=== PATIENT | male | born 1980 | race Caucasian/White ===

== ENCOUNTER 2020-01-10 14:55 | Inpatient (IN) | payer MEDICAID ==
[~2020-01-10] VITALS: Ht 175.3 cm; Wt 73.0 kg
--- NOTE | 2020-01-10 15:05 | NUR ---
Patient ambulated with stable gait. Speech is clear, speaks in complete sentences. No acute neuro deficits noted at this time. Patient came for c/o SOB, denies any contact with (+) COVID. Has been hospitalized <1mth. Denies any cp, palpitations, or n/v/d, states that he is unable to urinate.
[2020-01-10] MEDS ORDERED: CARV25TA2 PO (15:12)
[2020-01-10] MEDS ORDERED: LOSA100T31 PO (15:12)
[2020-01-10] MEDS ORDERED: CLONIDINE HCL 0.1 MG TABLET PO ONE (15:30)
[2020-01-10] MEDS ORDERED: ASPIRIN 81 MG TAB.CHEW PO ONE (15:30)
[2020-01-10 15:36] LABS: BASOPHILS # (AUTO) 0.1 K/uL (0.0-8.0); BASOPHILS % (AUTO) 0.9 % (0.0-2.0); EOSINOPHILS # (AUTO) 0.2 K/uL (0.0-0.7); EOSINOPHILS % (AUTO) 3.9 % (0.0-7.0); HEMATOCRIT 26.5 % (36.7-47.1); HEMOGLOBIN 8.9 g/dL (12.5-16.3); LYMPHOCYTES # (AUTO) 0.9 K/uL (20.0-40.0); LYMPHOCYTES % (AUTO) 14.6 % (20.5-51.5); MEAN CORPUSCULAR HGB CONC 34 g/dL (32.5-36.3); MONOCYTES # (AUTO) 0.3 K/uL (2.0-10.0); MONOCYTES % (AUTO) 5.5 % (0.0-11.0); NEUTROPHILS # (AUTO) 4.5 K/uL (1.8-8.9); NEUTROPHILS % (AUTO) 75.1 % (38.5-71.5); PLATELET COUNT (AUTO) 168 K/uL (152-348); RED BLOOD CELL COUNT(AUTO) 2.88 MIL/uL (4.06-5.63)
[2020-01-10 15:51] LABS: POTASSIUM 3.1 mmol/L (3.5-5.1)
[2020-01-10 15:56] LABS: CREATININE 8.6 mg/dL (0.6-1.3)
[2020-01-10] MEDS ORDERED: ASPIRIN 81 MG TAB.CHEW ONE (16:09)
[2020-01-10] MEDS ORDERED: CLONIDINE HCL 0.1 MG TABLET ONE (16:09)
--- NOTE | 2020-01-10 17:48 | NUR ---
Report given to NATALIE Alexis
--- NOTE | 2020-01-10 18:20 | NUR ---
Patient transported to TELE in stable condition via gurney.
--- NOTE | 2020-01-10 18:30 | NUR ---
ADMITTED VIA W/C, ACCOMPANIED BY ER NURSE. ORIENTED TO SURROUNDINGS. BP GROSSLY ELEVATED. STATES NORMAL FOR HIM. MD AWARE. FISTULA LEFT FOREARM WITH [facility] [employer].
[2020-01-10 18:31] VITALS: BP 169/124
[2020-01-10] MEDS ORDERED: EPOETIN ALFA 10,000 UNITS/ML VIAL SQ ONE (19:00)
--- NOTE | 2020-01-10 19:30 | NUR ---
RECEIVED PT IN NO ACUTE DISTRESS. PT AWAKE, ALERT AND ORIENTEDX4. SAFETY AND COMFORT PROVIDED. WILL CONTINUE TO MONITOR.
[2020-01-11 00:30] VITALS: BP 160/115
--- NOTE | 2020-01-11 00:30 | NUR ---
HANDS OFF REPORT TO ORION ESTRADA. PT DIALYSIS DONE LAST NIGHT 4L OUTPUT BASED ON HEMODIALYSIS NURSE. PT TOLERATED OT WELL WITHOUT COMPLICATION. SAFETY AND COMFORT PROVIDED.WILL CONTINUE TO MONITOR.
[2020-01-11 04:00] VITALS: BP 148/101
--- NOTE | 2020-01-11 05:21 | NUR ---
NO ACUTE DISTRESS NOTED, RESTED FAIRLY WELL. NEEDS ATTENDED TO.WILL HAVE DIALYSIS IN AM.
[2020-01-11 08:00] VITALS: BP 146/106
--- NOTE | 2020-01-11 08:00 | NUR ---
Pt in bed awake AOx4, removed O2 NC and denied any SOB or distress at this time, sat 98%. Pt made aware that O2 NC is at bedside when needed, verbalized understanding. On tele SR 99- ST 104, denied any chest pain. Currently on dialysis. Bed locked in lowest position with siderails 2x up. Call light and phone within reach.
--- NOTE | 2020-01-11 09:21 | NUR ---
The patient is on Dialysis. The technologist will perform ultrasound at 10:00. NATALIE Lopez noted.
[2020-01-11] MEDS ORDERED: CARVEDILOL 25 MG TABLET PO SCH (11:00)
--- NOTE | 2020-01-11 12:24 | NUR ---
The tech discussed with Dr. Stoner. Dr. Stoner said thoracentesis cannot be done today if the patient is discharged today. The patient is needed to observed at lease 24 hour after the procedure. NATALIE Lopez was notified at 12:25 PM. NATALIE Lopez will contact DR. Kate.
[2020-01-11 12:35] VITALS: BP 160/113
[2020-01-11] MEDS ORDERED: LOSARTAN POTASSIUM 50 MG TABLET PO SCH (12:45)
--- NOTE | 2020-01-11 12:48 | NUR ---
DR. WHITE WILL PERFORM tHRACENTESIS RIGHT JENNIFER AT 2:00PM SINCE DR. MARSH WILL POSTPONE THE DISCHARGE. NATALIE CÁRDENAS NOTED.
--- NOTE | 2020-01-11 14:16 | NUR ---
Radiologist the room for US guided thoracentesis of right lung. Consent signed
--- NOTE | 2020-01-11 14:40 | NUR ---
Thoracentesis done, 1900 ml of david-colored fluid removed. v/s BP-132/98, HR 90, RR 20, T-97.8, O2- 98% on RA, pt stated he will put in NC in a few minutes. No other complaints at this time. CXR stat done
[2020-01-11 14:45] VITALS: BP 132/98
--- NOTE | 2020-01-11 14:49 | NUR ---
Dr. Plummer instructed to observe pt for 2-3 hrs, and if normal and no changes, pt can be discharged home. Dr. Kate informed.
--- NOTE | 2020-01-11 15:19 | NUR ---
1900 cc of david color pleural fluid was drained by Dr. Augustin Stoner. The specimen were handed to NATALIE Lopez for further handing.
[2020-01-11 16:00] VITALS: BP 133/97
--- NOTE | 2020-01-11 17:47 | NUR ---
Pt left unit and went down to lobby, picked up by uber. Pt was informed to call RN or RF ENGINEER when uber comes, but pt left anyway. DC instructions and forms signed and given. Medication prescription also given. Belonging list signed and all accounted for. Pt awake AOx4, on RA, denied SOB or distress at this time. Pt has been ambulating to bathroom. Denied any chest pain. IV on right FA and ID band removed.
[2020-01-12 08:32] LABS: HEPATITIS B SURFACE AB Reactive (.); HEPATITIS B SURFACE AG Negative (Negative)
[2020-02-06] MEDS ORDERED: FOLI0.8T23 PO (12:02)
[2020-02-06] MEDS ORDERED: CARV25TA PO (12:02)
[2020-02-06] MEDS ORDERED: LOSA100T31 PO (12:02)
== END 2020-01-11 17:50 | disposition home or self-care (01) | DRG 199 ==
LOC: ER 14:55 → TELE3 18:07
PROVIDERS: ADMIT Internal Medicine Nephrology; ATTEND Internal Medicine Nephrology
PROC: 5A1D70Z Performance of Urinary Filtration, Intermittent, Less than 6 Hours Per Day (ICD-10-PCS; principal; 2020-01-10)
PROC: 0W993ZZ Drainage of Right Pleural Cavity, Percutaneous Approach (ICD-10-PCS; 2020-01-11)
DX: I16.1 Hypertensive emergency (principal); I13.2 Hypertensive heart and chronic kidney disease with heart failure and with stage 5 chronic kidney disease, or end stage renal disease; N18.6 End stage renal disease; Z99.2 Dependence on renal dialysis; E87.6 Hypokalemia; D64.9 Anemia, unspecified; I50.9 Heart failure, unspecified; J96.90 Respiratory failure, unspecified, unspecified whether with hypoxia or hypercapnia; R79.89 Other specified abnormal findings of blood chemistry
CPT/HCPCS: 32555; 36415; 70030-TC; 71045; 76705; 85025; 85730; 86706; 87340; 90937; 93005; 93880; A4663; G0378; J0885

== ENCOUNTER 2020-01-18 14:59 | Emergency (ER) | payer MEDICAID ==
[~2020-01-18] VITALS: Ht 175.3 cm; Wt 75.7 kg
[~2020-01-18 14:59] MED LIST: CARV25TA2 PO; LOSA100T31 PO
[2020-01-18] MEDS ORDERED: LIDOCAINE HCL 1% 20 ML VIAL TP ONE (15:30)
[2020-01-18] MEDS ORDERED: LIDOCAINE HCL 1% 20 ML VIAL ONE (15:30)
--- NOTE | 2020-01-18 15:35 | NUR ---
PT IS IN ROOM #2A. DR NEWSOME EVALAUATED THE PT.
--- NOTE | 2020-01-18 16:18 | NUR ---
PT WAS D/C'dTO HOME. D/C INSTRUCTIONS GIVEN TO THE PT.
[2020-01-18 16:19] VITALS: BP 146/85
[2020-02-06] MEDS ORDERED: FOLI0.8T23 PO (12:02)
[2020-02-06] MEDS ORDERED: CARV25TA PO (12:02)
[2020-02-06] MEDS ORDERED: LOSA100T31 PO (12:02)
== END 2020-01-18 16:20 | disposition home or self-care (01) ==
LOC: ER 15:01
DX: L02.211 Cutaneous abscess of abdominal wall (principal); N18.6 End stage renal disease; Z99.2 Dependence on renal dialysis; Z79.899 Other long term (current) drug therapy; R03.0 Elevated blood-pressure reading, without diagnosis of hypertension
CPT/HCPCS: 10160; 76882; 99284; J3490; A4663

== ENCOUNTER 2020-02-02 09:17 | Emergency (ER) | payer MEDICAID ==
[~2020-02-02] VITALS: Ht 172.7 cm; Wt 77.1 kg
--- NOTE | 2020-02-02 09:29 | NUR ---
Dr [email or web address], medical screening exam in progress
[2020-02-02 09:49] LABS: BASOPHILS # (AUTO) 0.1 K/uL (0.0-8.0); EOSINOPHILS # (AUTO) 0.1 K/uL (0.0-0.7); EOSINOPHILS % (AUTO) 1.5 % (0.0-7.0); LYMPHOCYTES # (AUTO) 0.6 K/uL (20.0-40.0); LYMPHOCYTES % (AUTO) 14.1 % (20.5-51.5); MEAN CORPUSCULAR HEMOGLOBIN 34.5 uug (23.8-33.4); MEAN CORPUSCULAR HGB CONC 36 g/dL (32.5-36.3); MEAN CORPUSCULAR VOLUME 96.1 fL (73.0-96.2); MONOCYTES # (AUTO) 0.2 K/uL (2.0-10.0); MONOCYTES % (AUTO) 5.2 % (0.0-11.0); NEUTROPHILS # (AUTO) 3.4 K/uL (1.8-8.9); NEUTROPHILS % (AUTO) 77.2 % (38.5-71.5); PLATELET COUNT (AUTO) 127 K/uL (152-348); RED BLOOD CELL COUNT(AUTO) 2.61 MIL/uL (4.06-5.63); WHITE BLOOD COUNT (AUTO) 4.3 K/uL (3.6-10.2)
[2020-02-02 09:56] LABS: POTASSIUM 2.9 mmol/L (3.5-5.1)
[2020-02-02 09:59] LABS: CREATININE 7.7 mg/dL (0.6-1.3)
[2020-02-02] MEDS ORDERED: CARVEDILOL 3.125 MG TABLET PO ONE (10:00)
[2020-02-02] MEDS ORDERED: LOSARTAN POTASSIUM 50 MG TABLET PO ONE (10:00)
[2020-02-02 10:09] LABS: BILIRUBIN,DIRECT 0.4 mg/dL (0.0-0.2); BILIRUBIN,TOTAL 1.1 mg/dL (0.2-1.0); TOTAL PROTEIN, SERUM 7.8 g/dL (6.4-8.2)
[2020-02-02] MEDS ORDERED: POTASSIUM CHLORIDE 20 MEQ TAB.PRT.SR PO ONE (10:15)
[2020-02-02] MEDS ORDERED: CARVEDILOL 25 MG TABLET PO ONE (10:15)
[2020-02-02] MEDS ORDERED: CEFTRIAXONE 1 G in IV DEXTROSE 5% 50 ML IV ONE (10:15)
[2020-02-02] MEDS ORDERED: AZITHROMYCIN IV 500 MG in IV DEXTROSE 5% 250 ML IV ONE (10:15)
[2020-02-02] MEDS ORDERED: CARVEDILOL 25 MG TABLET ONE (10:21)
--- NOTE | 2020-02-02 10:24 | NUR ---
Patient ate before taking the po BP meds. Patient wanted "some oxygen", MD notified.
[2020-02-02 10:27] VITALS: BP 189/118
--- NOTE | 2020-02-02 10:28 | NUR ---
* Only 25mg Coreg po per Dr Monaco and not 50mg Coreg po.
[2020-02-02] MEDS ORDERED: AZITHROMYCIN 500MG/ D5W 250ML IVPB **ER PYXIS ONLY IV ONE (10:35)
[2020-02-02] MEDS ORDERED: CEFTRIAXONE /D5W 50ML IVPB **ER PYXIS IV ONE (10:35)
[2020-02-02] MEDS ORDERED: POTASSIUM CHLORIDE 20 MEQ TAB.PRT.SR ONE (10:37)
--- NOTE | 2020-02-02 10:37 | NUR ---
Patient is refusing IV antibiotic (Rocephin & Azithromycin) and po potassium until Dr Kate calls back & talks to patient. MD is aware.
[2020-02-02 10:49] LABS: CREATINE KINASE, TOTAL 148 U/L (39-308); LACTATE DEHYDROGENASE 248 U/L (85-227)
--- NOTE | 2020-02-02 10:59 | NUR ---
Patient does not wish to proceed with medical care recommended by Dr. Monaco. Patient given information related to possible complications, up to and including , which could occur as a result of leaving the hospital at this time. Patient verbalized understanding of risks involved due to leaving against medical advice. Patient has signed AMA form.
[2020-02-02 11:03] LABS: FERRITIN 550 ng/mL (26-388)
[2020-02-06] MEDS ORDERED: CARV25TA PO (12:02)
[2020-02-06] MEDS ORDERED: LOSA100T31 PO (12:02)
[2020-02-06] MEDS ORDERED: FOLI0.8T23 PO (12:02)
== END 2020-02-02 10:59 | disposition left against medical advice (07) ==
LOC: ER 09:17
DX: R91.8 Other nonspecific abnormal finding of lung field (principal); R06.02 Shortness of breath; Z20.828 Contact with and (suspected) exposure to other viral communicable diseases; E87.6 Hypokalemia; R79.89 Other specified abnormal findings of blood chemistry; R00.0 Tachycardia, unspecified; N18.6 End stage renal disease; Z99.2 Dependence on renal dialysis; J90 Pleural effusion, not elsewhere classified
CPT/HCPCS: 36415; 70030-TC; 71045; 83615; 85025; 85730; 86140; 93005; A4663; J0456; J0696

== ENCOUNTER 2020-02-04 21:14 | Inpatient (IN) | payer MEDICAID ==
[~2020-02-04] VITALS: Ht 175.3 cm; Wt 78.0 kg
[2020-02-04] MEDS ORDERED: AZITHROMYCIN IV 500 MG in IV DEXTROSE 5% 250 ML IV ONE (21:45)
[2020-02-04] MEDS ORDERED: CEFTRIAXONE 1 G in IV DEXTROSE 5% 50 ML IV ONE (21:45)
[2020-02-04 22:20] LABS: BASOPHILS # (AUTO) 0.1 K/uL (0.0-8.0); BASOPHILS % (AUTO) 1.1 % (0.0-2.0); EOSINOPHILS # (AUTO) 0.1 K/uL (0.0-0.7); EOSINOPHILS % (AUTO) 1.8 % (0.0-7.0); HEMATOCRIT 25.8 % (36.7-47.1); HEMOGLOBIN 9.1 g/dL (12.5-16.3); LYMPHOCYTES # (AUTO) 0.8 K/uL (20.0-40.0); LYMPHOCYTES % (AUTO) 14.2 % (20.5-51.5); MEAN CORPUSCULAR HEMOGLOBIN 34.6 uug (23.8-33.4); MEAN CORPUSCULAR HGB CONC 35 g/dL (32.5-36.3); MEAN CORPUSCULAR VOLUME 97.8 fL (73.0-96.2); MONOCYTES # (AUTO) 0.4 K/uL (2.0-10.0); MONOCYTES % (AUTO) 7.9 % (0.0-11.0); NEUTROPHILS # (AUTO) 4.2 K/uL (1.8-8.9); PLATELET COUNT (AUTO) 156 K/uL (152-348); RED BLOOD CELL COUNT(AUTO) 2.64 MIL/uL (4.06-5.63); WHITE BLOOD COUNT (AUTO) 5.6 K/uL (3.6-10.2)
[2020-02-04 22:25] LABS: CREATININE 7.4 mg/dL (0.6-1.3); POTASSIUM 3.4 mmol/L (3.5-5.1)
[2020-02-04] MEDS ORDERED: CEFTRIAXONE /D5W 50ML IVPB **ER PYXIS IV ONE (22:34)
[2020-02-04 22:44] LABS: BILIRUBIN,TOTAL 0.7 mg/dL (0.2-1.0); TOTAL PROTEIN, SERUM 7.8 g/dL (6.4-8.2)
[2020-02-04 22:52] LABS: ABG BASE EXCESS 2.7 mmol/L; ABG HCO3 26.8 mmol/L; ABG PH 7.455 (7.350-7.450); ABG PO2 108.6 mmHg (75.0-100.0); ABG SITE RIGHT RADIAL; ABG TOTAL HEMOGLOBIN 9.2 G/dL (13.5-18.0); COHb 2.5 % (0.5-1.5); MetHb 0.3 % (0.0-1.5); O2Hb 95.5 % (94.0-97.0); VENT MODE ROOM AIR
[2020-02-04] MEDS ORDERED: AZITHROMYCIN 500MG/ D5W 250ML IVPB **ER PYXIS ONLY IV ONE (23:13)
--- NOTE | 2020-02-05 | NUR ---
pt in bed, awake, watching TV no s/s of distress safety precautions in place. bed locked, lowest position will continue to monitor
--- NOTE | 2020-02-05 00:10 | NUR ---
Called [facility] for panel call, Dr. Briscoe. Awaiting for call back
--- NOTE | 2020-02-05 00:12 | NUR ---
Dr. Monaco on panel call with Dr. Briscoe
--- NOTE | 2020-02-05 00:45 | NUR ---
assisted pt to bedside comode. ambulatory with steady gait
--- NOTE | 2020-02-05 01:10 | NUR ---
Report given to NATALIE Romano
[2020-02-05] MEDS ORDERED: hydrALAZINE HCL 20 MG/1 ML VIAL IV STA (01:15)
[2020-02-05] MEDS ORDERED: hydrALAZINE HCL 20 MG/1 ML VIAL ONE (01:22)
[2020-02-05] MEDS ORDERED: MAGNESIUM HYDROXIDE 30 ML LIQUID UDC PO PRN (02:00)
[2020-02-05] MEDS ORDERED: Z GUARD REMEDY PASTE 57 GM TUBE TOP PRN (02:00)
[2020-02-05] MEDS ORDERED: ENOXAPARIN SODIUM 40 MG/0.4 ML DISP.SYRIN SQ SCH (02:00)
[2020-02-05] MEDS ORDERED: ONDANSETRON 4 MG/2 ML VIAL IV PRN (02:00)
[2020-02-05] MEDS ORDERED: ACETAMINOPHEN 325 MG TABLET PO PRN (02:00)
[2020-02-05] MEDS ORDERED: CLONIDINE HCL 0.1 MG TABLET PO ONE (02:00)
[2020-02-05] MEDS ORDERED: HYDROCODONE/APAP 5-325MG TABLET PO PRN (02:00)
[2020-02-05] MEDS ORDERED: CLONIDINE HCL 0.1 MG TABLET ONE (02:02)
--- NOTE | 2020-02-05 02:14 | NUR ---
pt in bed, awake no s/s of distress respirations even and unlabored denies pain/n/v safety precautions in place. bed locked, lowest position. instructed pt to call nurse for assistance will continue to monitor
--- NOTE | 2020-02-05 02:34 | NUR ---
spoke with Dr. Briscoe, per dr. stevenson to take pt to the floor Addendum: 02/05/[address] Briscoe aware of pt's BP 181/128, HR 108, SpO2 99%. Per doctorgraham to admit inpatient
--- NOTE | 2020-02-05 03:06 | NUR ---
patient received from ER. will continue to monitor and complete admissions process.
--- NOTE | 2020-02-05 03:08 | NUR ---
transported to [facility] in stable condition aa/ox4. able to speak in complete sentences respirations even and unlabored all belongings with pt
--- NOTE | 2020-02-05 03:13 | NUR ---
VS BP: 163/112, HR 104, SpO2 98%RA, RR 20
[2020-02-05] MEDS: CARVEDILOL 25 MG TABLET PO SCH ×2 (03:35→10:41)
[2020-02-05] MEDS: FUROSEMIDE 40 MG/4 ML VIAL IV SCH ×3 (03:35→20:43)
[2020-02-05 03:43] VITALS: BP 157/110
--- NOTE | 2020-02-05 04:17 | NUR ---
PATIENT REFUSING LASIX AND COREG. ASKED RN WHAT THEY WERE FOR AND DESPITE EDUCATION PATIENT REPORTED THAT HE ALREADY RECEIVED BP MEDICATIONS IN THE ER AND BP IS USUALLY HIGH AT HOME ANYWAYS. WILL CONTINUE TO MONITOR AND ASSESS.
[2020-02-05 04:21] VITALS: BP 142/99
[2020-02-05] MEDS: HEPARIN SODIUM,PORCINE 5,000 UNITS/ML VIAL SQ SCH ×2 (08:27→20:53)
--- NOTE | 2020-02-05 08:51 | NUR ---
Received patient in bed, awake, alert and verbally responsive. On Oxygen at 1L via Nasal canula, sat 98%. No cough noted. No complain of Pain or discomfort. Patient will have dialysis today. Will continue to monitor.
[2020-02-05 09:26] VITALS: BP 154/90
[2020-02-05] MEDS: LOSARTAN POTASSIUM 50 MG TABLET PO SCH ×2 (10:41→17:00)
[2020-02-05 11:30] VITALS: BP 132/94
[2020-02-05] MEDS ORDERED: EPOETIN ALFA 10,000 UNITS/ML VIAL SQ ONE (15:00)
[2020-02-05 16:00] VITALS: BP 134/87
--- NOTE | 2020-02-05 16:32 | NUR ---
HD done with output of 3L.
--- NOTE | 2020-02-05 17:05 | NUR ---
Patient refused Losartan 50mg at 1700, explained benefits and consequences x3, still refused. Will continue to monitor.
--- NOTE | 2020-02-05 18:03 | NUR ---
patient in bed, awake, alert and verbally responsive. No signs of distress noted. No SOB. Afebrile. no complain of Pain or discomfort. HD done with 3L output. All needs attended and met. Kept clean and comfortable. Will endorse to Oncoming Nurse.
[2020-02-05 20:19] VITALS: BP 139/98
--- NOTE | 2020-02-05 21:00 | NUR ---
Patient alert x4, no s/s of distress noted, AV fistula noted to left lower arm with strong palpable thrill and bruit. Dressing intact.Saline lock on Rt hand patent and intact. No s/s of infiltration.Patient able to ambulates to the bathroom .Denies SOB with O2 inhalation at 1L via NC.Saturating well at 98%.Patient refused heparin SC .Explained Risk and benefit x3.Still refused.Will continue to monitor.Call light with in reach.
[2020-02-06] MEDS ORDERED: CLONIDINE HCL 0.1 MG TABLET PO PRN (02:15)
--- NOTE | 2020-02-06 03:06 | NUR ---
Patient noted with BP of 151/114. Denies SOB, headache or discomfort.Notified with new order given ,noted and carried out.
[2020-02-06 05:28] VITALS: BP 147/106
--- NOTE | 2020-02-06 06:07 | NUR ---
Patient asleep in no apparent distress noted.On RA O2 sat at 98%.Continue safety measures.Call light within reach.Will endorse to oncoming nurse.
--- NOTE | 2020-02-06 08:30 | NUR ---
L f/a av shunt audible bruit and thrill noted. NO bleeding noted on shunt. IV flushed without and resistance. Pt is in no acute distress. Pt refused AM blood draw refused by pt. Explained to pt purpose of the blood draw but pt cont to refuse. Pt refused heparin and lasix meds. Discussed purpose of medications. Pt continous to refuse meds. Call light is within reach.
[2020-02-06] MEDS: FUROSEMIDE 40 MG/4 ML VIAL IV SCH (09:00)
[2020-02-06] MEDS: HEPARIN SODIUM,PORCINE 5,000 UNITS/ML VIAL SQ SCH (09:00)
[2020-02-06] MEDS: LOSARTAN POTASSIUM 50 MG TABLET PO SCH (10:12)
[2020-02-06] MEDS: CARVEDILOL 25 MG TABLET PO SCH (10:13)
--- NOTE | 2020-02-06 11:00 | NUR ---
Discharge instruction given to patient. Pt verbalized understanding. E-prescription verified that preferred pharmacist received new meds ordered. Pt ambulatory with good balance. No sob noted. IV d/c. Pt to follow up with PMD within 1 week. NOtified pt that Dr lerner want to see pt this tues.
[2020-02-06 12:00] VITALS: BP 119/87
[2020-02-06] MEDS ORDERED: FOLI0.8T23 PO (12:02)
[2020-02-06] MEDS ORDERED: CARV25TA PO (12:02)
[2020-02-06] MEDS ORDERED: LOSA100T31 PO (12:02)
[2020-02-06 12:12] LABS: BASOPHILS % (AUTO) 0.8 % (0.0-2.0); EOSINOPHILS # (AUTO) 0.1 K/uL (0.0-0.7); EOSINOPHILS % (AUTO) 2.9 % (0.0-7.0); HEMATOCRIT 26.4 % (36.7-47.1); HEMOGLOBIN 9.1 g/dL (12.5-16.3); LYMPHOCYTES # (AUTO) 0.9 K/uL (20.0-40.0); LYMPHOCYTES % (AUTO) 23.8 % (20.5-51.5); MEAN CORPUSCULAR HEMOGLOBIN 34.4 uug (23.8-33.4); MEAN CORPUSCULAR HGB CONC 34 g/dL (32.5-36.3); MONOCYTES # (AUTO) 0.3 K/uL (2.0-10.0); MONOCYTES % (AUTO) 8.1 % (0.0-11.0); NEUTROPHILS # (AUTO) 2.4 K/uL (1.8-8.9); NEUTROPHILS % (AUTO) 64.4 % (38.5-71.5); PLATELET COUNT (AUTO) 135 K/uL (152-348); RED BLOOD CELL COUNT(AUTO) 2.64 MIL/uL (4.06-5.63); WHITE BLOOD COUNT (AUTO) 3.7 K/uL (3.6-10.2)
[2020-02-06 12:34] LABS: MAGNESIUM 2.3 mg/dL (1.8-2.4); PHOSPHOROUS 5.1 mg/dL (2.5-4.9)
[2020-02-06 12:35] LABS: CREATININE 7.8 mg/dL (0.6-1.3)
[2020-02-06 12:58] LABS: THYROID STIMULATING HORMONE 1.684 mIU/mL (0.358-3.740)
[2020-02-08 03:09] LABS: HEPATITIS B SURFACE AB Reactive (.)
[2020-02-08 03:09] LABS: HEPATITIS B SURFACE AB Reactive (.); HEPATITIS B SURFACE AG Negative (Negative)
== END 2020-02-06 13:15 | disposition home or self-care (01) ==
LOC: ER 21:14 → TELE3 02-05 01:04
PROVIDERS: ADMIT Internal Medicine; ATTEND Internal Medicine
PROC: 5A1D70Z Performance of Urinary Filtration, Intermittent, Less than 6 Hours Per Day (ICD-10-PCS; principal; 2020-02-05)
DX: K74.60 Unspecified cirrhosis of liver (principal); I13.11 Hypertensive heart and chronic kidney disease without heart failure, with stage 5 chronic kidney disease, or end stage renal disease; N18.6 End stage renal disease; Z99.2 Dependence on renal dialysis; R18.8 Other ascites; D63.8 Anemia in other chronic diseases classified elsewhere; D68.59 Other primary thrombophilia; E87.6 Hypokalemia; F17.210 Nicotine dependence, cigarettes, uncomplicated; I10 Essential (primary) hypertension; J90 Pleural effusion, not elsewhere classified; I50.9 Heart failure, unspecified; I16.1 Hypertensive emergency; R94.31 Abnormal electrocardiogram [ECG] [EKG]; J15.9 Unspecified bacterial pneumonia; I50.33 Acute on chronic diastolic (congestive) heart failure; R00.0 Tachycardia, unspecified
CPT/HCPCS: 36415; 36600; 71045; 76705; 83605; 83615; 83735; 84100; 84443; 85025; 85730; 86140; 86704; 86706; 86803; 87040; 87340; 87400; 90937; 93307; A4663; G0378; J0360; J0456; J0696; J0885; J1644; J1940; J7060; U0003-CS